=== PATIENT | female | born 1965 | race Caucasian/White ===

== ENCOUNTER 2018-04-02 13:53 | Emergency (ER) | payer OTHER ==
[~2018-04-02] VITALS: Ht 162.6 cm; Wt 86.2 kg
[2018-04-02] MEDS ORDERED: SYNTHROID112 MC1 PO (14:08)
[2018-04-02] MEDS ORDERED: SINGULAIR 10 MG10 M1 PO (14:09)
[2018-04-02] MEDS ORDERED: ESTRADIOL 1 MG T1 M1 PO (14:09)
[2018-04-02] MEDS ORDERED: CETIRIZINE HCL5 MG PO (14:09)
[2018-04-02] MEDS ORDERED: RESTASIS1 EACH OPHTHALMIC (14:09)
[2018-04-02] MEDS ORDERED: DULERA 100 MCG/13 GM INH (14:10)
[2018-04-02] MEDS ORDERED: IBUPROFEN 800800 M1 PO (15:42)
[2018-04-02] MEDS ORDERED: NORCO 5-325 TA1 EACH PO (15:42)
[2018-04-02] MEDS ORDERED: ROBAXIN 750 MG750 M1 PO (15:44)
[2018-04-02 15:55] VITALS: BP 131/93
== END 2018-04-02 15:55 | disposition home or self-care (01) ==
LOC: M.ERS 13:53
DX: S16.1XXA Strain of muscle, fascia and tendon at neck level, initial encounter (principal); R51 Headache; M54.5 Low back pain; M25.511 Pain in right shoulder; J45.909 Unspecified asthma, uncomplicated; Z90.710 Acquired absence of both cervix and uterus; Z88.0 Allergy status to penicillin; V89.2XXA Person injured in unspecified motor-vehicle accident, traffic, initial encounter; Y93.89 Activity, other specified; Y92.89 Other specified places as the place of occurrence of the external cause; Y99.8 Other external cause status